=== PATIENT | male | born 1935 | race Caucasian/White ===

== ENCOUNTER 2017-11-12 08:32 | Day surgery (SDC) | payer OTHER ==
--- NOTE | 2017-11-11 10:12 | RAD REPORT ---
EXAM DESCRIPTION: RAD - Chest Pa And Lat (2 Views) - 11/11/2017 8:59 am CLINICAL HISTORY: preop Chest pain. COMPARISON: CHEST SINGLE VIEW dated 06/06/2007 FINDINGS: The lungs are clear. The heart is normal in size. No displaced fractures. IMPRESSION: No acute or concerning finding suspected.
[2017-11-11 10:35] LABS: Absolute Lymphocytes (CBC) 1.5 K/uL (0.7-4.9); Absolute Monocytes 0.5 K/uL (0.1-1.3); Absolute Neutrophil 4.2 K/uL (1.8-8.0); Basophils % 0.4 % (0-1.3); Eosinophils % 2.7 % (0-4.4); Hematocrit 38.5 % (39.6-49.0); Lymphocytes % 23.5 % (15.3-44.8); MCH 31.3 pg (27.0-35.0); MCV 94.4 fL (80-100); MPV 8.6 fL (7.6-11.3); Monocytes % 7.4 % (3.3-12.3); RBC Red Blood Cell Count 4.08 M/uL (4.33-5.43)
[2017-11-11 10:51] LABS: BUN Blood Urea Nitrogen 12 mg/dL (7-18); Bicarbonate 31 mmol/L (21-32); Glucose Level 87 mg/dL (74-106); Potassium 4.1 mmol/L (3.5-5.1); Sodium Level 142 mmol/L (136-145)
--- NOTE | 2017-11-11 15:41 | EKG ---
Test Date: 2017-11-11 Test Time: 08:29:46 Plate Maker Zinc: PREM MEASUREMENT RESULTS: Intervals: Rate: 63 IA: 218 QRSD: 96 QT: 414 QTc: 423 [place]: P: 27 IA: 218 QRS: -35 T: 59 INTERPRETIVE STATEMENTS: Sinus rhythm with 1st degree AV block Left axis deviation Abnormal ECG Compared to ECG 06/08/2007 05:56:41 First degree AV block now present Left-axis deviation now present Electronically Signed On 11-11-17 15:40:26 CDT by Russell Mruillo
[2017-11-12] MEDS ORDERED: Ringers Lactate 1,000 ML IV ONE (08:59)
[2017-11-12] MEDS ORDERED: CIPROFLOXACIN 400mg IV 400 MG/200 ML BAG IV ONE (08:59)
[2017-11-12] MEDS ORDERED: LIDOCAINE 1% 20 ML MDV ONE (09:34)
--- NOTE | 2017-11-12 19:04 | OP ---
Date of Procedure: 11/12/2017 Surgeon: Brendan Flores MD Preoperative Diagnosis: Inflamed sebaceous cyst, right posterior shoulder. Postoperative Diagnosis: Inflamed sebaceous cyst, right posterior shoulder. Procedure: Wide excision, inflamed sebaceous cyst right posterior shoulder 8 x 4 cm with layered addie sure. Estimated Blood Loss: Minimal. Specimens: Sebaceous cyst and DISK RECOATER. Findings: As above. Anesthesia: Local. Complications: None. Disposition: The patient tolerated the procedure in stable condition and taken to Recovery in good g eneral condition. Operative Note: The patient was brought to the OR and placed in the supine position and then turned in the left lateral position, prepped and draped in usual sterile fashion. Lidocaine 1% was infiltra aruna locally. A 15-blade was used to make an 8 x 4 cm incision to include this inflamed sebaceous cys t, which was excised in its entirety all the way down to the subcutaneous space involving the muscle. After being excised, it was sent to pathology and cultures were done on the inflamed contents of th e cyst. Wound irrigated. Bleeding controlled with cautery. Flap was created and then 2-0 chromic u sed for subcutaneous tissue and after [place] quarter-inch drain was placed, secured with 3-0 nylon a nd then donovan used to loosely approximate the skin. Sterile dressing was applied. The patient was awakened and taken to Recovery in good general condition. Discharge Note: The patient will go to Day Surgery and home when stable. Disposition: Home. Condition: Stable. Discharge Instructions: Resume home meds and diet. Activity as tolerated. No heavy lifting. Remov e outer dressing in a.m. Shower. Keep wound clean and dry. Follow up in my office in a week. Call for appointment. Tylenol No. 3 one tablet p.o. q.4 p.r.n. pain, Cipro 500 mg p.o. q.12. /MODL Voice ID: [id number] Report ID: [id number]
== END 2017-11-12 11:50 | disposition home or self-care (01) ==
LOC: OR 08:32
PROVIDERS: ATTEND Surgery
PROC: 0JQD0ZZ Repair Right Upper Arm Subcutaneous Tissue and Fascia, Open Approach (ICD-10-PCS; 2017-11-12)
PROC: 0JBD0ZX Excision of Right Upper Arm Subcutaneous Tissue and Fascia, Open Approach, Diagnostic (ICD-10-PCS; principal; 2017-11-12 10:00)
DX: L72.3 Sebaceous cyst (principal); L92.8 Other granulomatous disorders of the skin and subcutaneous tissue; Z88.0 Allergy status to penicillin
CPT/HCPCS: 11406; 12034; 36415; 71046; 80048; 85025; 87070; 87075; 87205 ×2; 88304; 93005; J0744; 88305

== ENCOUNTER 2017-12-30 09:23 | Emergency (ER) | payer OTHER ==
[2017-12-30] MEDS ORDERED: HYDROCODONE/APAP 7.5/325 MG TAB ONE (10:10)
--- NOTE | 2017-12-30 11:00 | EDPHYS ---
Physician Documentation [facility] Name: Liss Cordon Age: 82 yrs Sex: Male : 1935 Arrival Date: 12/30/2017 Time: 09:26 Bed 5 Private MD: Morris Santana R ED Physician Manny Royal HPI: 12/30 10:00 This 82 yrs old Male presents to ER via Wheelchair with complaints of Fall redd Injury. 10:00 Details of fall: The patient fell from an upright position, while walking. Onset: The redd symptoms/episode began/occurred just prior to arrival, this morning. Associated injuries: The patient sustained injury to the head, abrasion, contusion, hematoma, pain. Severity of symptoms: At their worst the symptoms were moderate, in the emergency department the symptoms are unchanged. Historical: - Allergies: 09:50 NKA; iw - PMHx: 09:50 Alzheimers; Hyperlipidemia; iw - PSHx: 09:50 Cholecystectomy; cyst removed from shoulder; iw - Immunization history: Last tetanus immunization: unknown. - Social history:: Smoking status: Patient/guardian denies using tobacco. - Ebola Screening: : Patient denies exposure to infectious person Patient denies travel to an Ebola-affected area in the 21 days before illness onset. ROS: 10:05 Constitutional: Negative for fever, chills, and weight loss, Eyes: Negative for injury, redd pain, redness, and discharge, ENT: Negative for injury, pain, and discharge, Neck: Negative for injury, pain, and swelling, Cardiovascular: Negative for chest pain, palpitations, and edema, Respiratory: Negative for shortness of breath, cough, wheezing, and pleuritic chest pain, Abdomen/GI: Negative for abdominal pain, nausea, vomiting, diarrhea, and constipation, Back: Negative for injury and pain, : Negative for injury, bleeding, discharge, and swelling, Neuro: Negative for headache, weakness, numbness, tingling, and seizure, Psych: Negative for depression, anxiety, suicide ideation, homicidal ideation, and hallucinations, Allergy/Immunology: Negative for hives, rash, and allergies, Endocrine: Negative for neck swelling, polydipsia, polyuria, polyphagia, and marked weight changes, Hematologic/Lymphatic: Negative for swollen nodes, abnormal bleeding, and unusual bruising. 10:05 MS/extremity: Positive for decreased range of motion, pain, swelling, tenderness, of the right knee. 10:05 Skin: Positive for abrasion(s), swelling, of the nose and mouth. Exam: 10:05 Constitutional: This is a well developed, well nourished patient who is awake, alert, redd and in no acute distress. Eyes: Pupils equal round and reactive to light, extra-ocular motions intact. Lids and lashes normal. Conjunctiva and sclera are non-icteric and not injected. Cornea within normal limits. Periorbital areas with no swelling, redness, or edema. ENT: Nares patent. No nasal discharge, no septal abnormalities noted. Tympanic membranes are normal and external auditory canals are clear. Oropharynx with no redness, swelling, or masses, exudates, or evidence of obstruction, uvula midline. Mucous membranes moist. Neck: Trachea midline, no thyromegaly or masses palpated, and no cervical lymphadenopathy. Supple, full range of motion without nuchal rigidity, or vertebral point tenderness. No Meningismus. Chest/axilla: Normal chest wall appearance and motion. Nontender with no deformity. No lesions are appreciated. Cardiovascular: Regular rate and rhythm with a normal S1 and S2. No gallops, murmurs, or rubs. Normal PMI, no JVD. No pulse deficits. Respiratory: Lungs have equal breath sounds bilaterally, clear to auscultation and percussion. No rales, rhonchi or wheezes noted. No increased work of breathing, no retractions or nasal flaring. Abdomen/GI: Soft, non-tender, with normal bowel sounds. No distension or tympany. No guarding or rebound. No evidence of tenderness throughout. Back: No spinal tenderness. No costovertebral tenderness. Full range of motion. Male : Normal genitalia with no discharge or lesions. Skin: Warm, dry with normal turgor. Normal color with no rashes, no lesions, and no evidence of cellulitis. Neuro: Awake and alert, GCS 15, oriented to person, place, time, and situation. Cranial nerves II-XII grossly intact. Motor strength 5/5 in all extremities. Sensory grossly intact. Cerebellar exam normal. Normal gait. Psych: Awake, alert, with orientation to person, place and time. Behavior, mood, and affect are within normal limits. 10:05 Head/face: Noted is abrasion(s), that are mild, of the nose and mouth, contusion, swelling, tenderness. 10:05 Musculoskeletal/extremity: Extremities: grossly normal except: noted in the right knee: decreased ROM, pain, swelling, tenderness. Vital Signs: 09:43 BP 144 / 74; Pulse 63; Resp 16; Temp 97.6(TE); Pulse Ox 97% on R/A; Weight 83.91 kg; iw Height 5 ft. 9 in. (175.26 cm); Pain 0/10; 11:00 BP 142 / 72; Pulse 65; Resp 16; Pulse Ox 98% on R/A; Pain 4/10; ss 09:43 Body Mass Index 27.32 (83.91 kg, 175.26 cm) iw Shar Coma Score: 09:43 Eye Response: spontaneous(4). Verbal Response: oriented(5). Motor Response: obeys iw commands(6). Total: 15. 11:00 Eye Response: spontaneous(4). Verbal Response: oriented(5). Motor Response: obeys ss commands(6). Total: 15. Trauma Score (Adult): 09:43 Eye Response: spontaneous(1); Verbal Response: oriented(1); Motor Response: obeys iw commands(2); Systolic BP: > 89 mm Hg(4); Respiratory Rate: 10 to 29 per min(4); Lingle Score: 15; Trauma Score: 12 MDM: 09:41 Patient medically screened. [facility] 10:09 Data reviewed: radiologic studies, plain films. [facility] 12/30 10:00 Order name: Knee Right 3 View XRAY [facility] 12/30 10:00 Order name: Ice pack; Complete Time: 10:01 [facility] 12/30 10:00 Order name: Wound Care; Complete Time: 10:41 [facility] 12/30 10:58 Order name: Knee Immobilizer; Complete Time: 11:14 [facility] Administered Medications: 10:10 Drug: Neosporin Ointment 1 application Route: Topical; Site: affected area; 11:14 Not Given (Patient Refused): Marquette (7.5 mg-325 mg) 1 tabs PO once iw Disposition: 12/30/17 10:59 Discharged to Home. Impression: Fall due to bumping against object, Fracture of patella, Longitudinal fracture of patella. - Condition is Stable. - Discharge Instructions: Fall Prevention in the Home, Patellar Fracture, Adult, Fall Prevention in the Home, [id number]. - Prescriptions for Tylenol- Codeine #3 300-30 mg Oral Tablet - take 2 tablet by ORAL route every 6 hours As needed; 30 tablet. - Medication Reconciliation Form, Thank You Letter, Antibiotic Education, Prescription Opioid Use form. - Follow up: Morris Santana MD; When: 2 - 3 days; Reason: Recheck today's complaints, Continuance of care, Re-evaluation by your physician. Follow up: Murphy Valerio MD; When: 2 - 3 days; Reason: Recheck today's complaints, Re-evaluation by your physician. - Problem is new. - Symptoms have improved. Signatures: Dispatcher [employer] EDMS Ramon Reeves RN RN Manny Snowden MD MD cha Williams, Irene, RN RN iw Smirch, Shelby, RN RN ss Corrections: (The following items were deleted from the chart) 11:28 10:59 12/30/2017 10:59 Discharged to Home. Impression: Fall due to bumping against ss object; Fracture of patella; Longitudinal fracture of patella. Condition is Stable. Forms are Medication Reconciliation Form, Thank You Letter, Antibiotic Education, Prescription Opioid Use. Follow up: Morris Santana; When: 2 - 3 days; Reason: Recheck today's complaints, Continuance of care, Re-evaluation by your physician. Follow up: Murphy Valerio; When: 2 - 3 days; Reason: Recheck today's complaints, Re-evaluation by your physician. Problem is new. Symptoms have improved. redd
--- NOTE | 2017-12-30 11:00 | ER ---
Nurse's Notes [facility] Name: Liss Cordon Age: 82 yrs Sex: Male : 1935 Arrival Date: 12/30/2017 Time: 09:26 Bed 5 Private MD: Morris Santana R Diagnosis: Fall due to bumping against object;Fracture of patella;Longitudinal fracture of patella Presentation: 12/30 09:40 Presenting complaint: Patient states: tripped and fell over a pile of tree limbs this iw morning, fell onto concrete, hit face and right knee, denies LOC, not on blood thinners, pain and swelling to right knee, cannot bear weight on knee. Care prior to arrival: None. Mechanism of Injury: Fall from standing position. Trauma event details: Injury occurred in the [facility], Injury occurred: at home. Injury occurred: December 30, 2017. 09:40 Acuity: HARDY 3 iw 09:40 Method Of Arrival: Wheelchair iw 09:48 Transition of care: patient was not received from another setting of care. Onset of ss symptoms was December 30, 2017. Risk Assessment: Do you want to hurt yourself or someone else? Patient reports no desire to harm self or others. Initial Sepsis Screen: Does the patient meet any 2 criteria? No. Patient's initial sepsis screen is negative. Does the patient have a suspected source of infection? No. Patient's initial sepsis screen is negative. Trauma Activation: Not Applicable Physician: ED Physician; Name: ; Notified At: ; Arrived At: Physician: General Surgeon; Name: ; Notified At: ; Arrived At: Physician: Radiology; Name: ; Notified At: ; Arrived At: Physician: Respiratory; Name: ; Notified At: ; Arrived At: Physician: Lab; Name: ; Notified At: ; Arrived At: Historical: - Allergies: 09:50 NKA; iw - PMHx: 09:50 Alzheimers; Hyperlipidemia; iw - PSHx: 09:50 Cholecystectomy; cyst removed from shoulder; iw - Immunization history: Last tetanus immunization: unknown. - Social history:: Smoking status: Patient/guardian denies using tobacco. - Ebola Screening: : Patient denies exposure to infectious person Patient denies travel to an Ebola-affected area in the 21 days before illness onset. Screenin:41 Abuse screen: Denies threats or abuse. Denies injuries from another. Tuberculosis ss screening: Never had TB. 09:45 Nutritional screening: No deficits noted. Fall Risk Fall in past 12 months (25 points). ss Secondary diagnosis (15 points) Alzheimer's, No IV (0 pts). Ambulatory Aid- None/Bed Rest/Nurse Assist (0 pts). Gait- Normal/Bed Rest/Wheelchair (0 pts) Mental Status- Oriented to own ability (0 pts). Primary Survey: :41 A: Airway: patent, No supplemental oxygen in use on arrival. Oral cavity: clear, ss Trachea midline. Breathing/Chest: Respiratory pattern: regular, Respiratory effort: spontaneous, unlabored, Breath sounds: clear, Chest inspection: symmetrical rise and fall of the chest. Circulation: Pulses: palpable right radial artery, right posterior tibial artery, left radial artery and left posterior tibial artery. Skin color: pink, Skin temperature: warm, dry. Disability Alert. 10:15 Reassessment Airway Airway Breathing/Chest Respiratory pattern Regular Respiratory ss effort Spontaneous Unlabored Breath sounds Clear Chest inspection Symmetrical Disability Alert. Secondary Survey: :41 HEENT: Face Other redness/ mild abrasion noted to upper lip and top of nose. ss Gastrointestinal: No deficits noted. : No deficits noted. Musculoskeletal: Swelling present in right knee. Assessment: 09:41 General: Appears in no apparent distress. comfortable, Behavior is calm, cooperative. ss Pain: Complains of pain in philtrum and right knee Pain currently is 0 out of 10 on a pain scale. Quality of pain is described as tender, Aggravated by weight bearing. Neuro: Level of Consciousness is awake, alert, obeys commands, Oriented to person, place, situation, Speech is normal. EENT: Nares are clear Oral mucosa is moist. Throat is clear. Cardiovascular: Denies chest pain, fatigue, lightheadedness, shortness of breath, Heart tones S1 S2 present Capillary refill < 3 seconds is brisk in bilateral fingers Patient's skin is warm and dry. Pulses are palpable in right radial artery, right posterior tibial artery, left radial artery and left posterior tibial artery. Respiratory: Airway Trachea midline Respiratory effort is even, unlabored, Respiratory pattern is regular, symmetrical, Breath sounds are clear bilaterally. Denies cough, shortness of breath labored breathing, pain with respiration, pain with cough, pain with movement. GI: Patient currently denies abdominal pain, diarrhea, nausea, vomiting. : No signs and/or symptoms were reported regarding the genitourinary system. Derm: Skin is thin, Skin is dry, Skin is pink, warm \\T\\ dry. Musculoskeletal: Circulation, motion, and sensation intact. Range of motion: intact in all extremities, Swelling present in right knee. Injury Description: Abrasion sustained to philtrum, R knee. 09:45 Reassessment: Pt reports he was able to ambulate right after he fell, but made his R ss knee pain worse. Daughter remains at bedside. Pillow and warm blanket given for comfort. Call light remains within reach. 10:09 Reassessment: pt currently refused Burt as ordered, pt reports " lets hold off on the sg pain medication right now." Xray at bedside, pt family remains in hallway while xrays are done. will continue to monitor. Vital Signs: 09:43 BP 144 / 74; Pulse 63; Resp 16; Temp 97.6(TE); Pulse Ox 97% on R/A; Weight 83.91 kg; iw Height 5 ft. 9 in. (175.26 cm); Pain 0/10; 11:00 BP 142 / 72; Pulse 65; Resp 16; Pulse Ox 98% on R/A; Pain 4/10; ss 09:43 Body Mass Index 27.32 (83.91 kg, 175.26 cm) iw [place] Coma Score: 09:43 Eye Response: spontaneous(4). Verbal Response: oriented(5). Motor Response: obeys commands(6). Total: 15. 11:00 Eye Response: spontaneous(4). Verbal Response: oriented(5). Motor Response: obeys commands(6). Total: 15. Trauma Score (Adult): 09:43 Eye Response: spontaneous(1); Verbal Response: oriented(1); Motor Response: obeys commands(2); Systolic BP: > 89 mm Hg(4); Respiratory Rate: 10 to 29 per min(4); Shar Score: 15; Trauma Score: 12 ED Course: 09:26 Patient arrived in ED. mr 09:26 Morris Santana MD is Private Physician. mr 09:41 Fide Allred, MIREYA is Primary Nurse. ss 09:41 Manny Royal MD is Attending Physician. redd 09:43 Triage completed. iw 09:45 Patient has correct armband on for positive identification. Bed in low position. Call ss light in reach. Side rails up X 1. Door closed. Noise minimized. Lights dimmed. Warm blanket given. Pillow given. 09:45 Patient maintains SpO2 saturation greater than 95% on room air. ss 09:45 Thermoregulation: warm blanket given to patient. ss 09:50 Arm band placed on. iw 10:10 Wound care: to abrasion, located on right knee was cleaned with soap and water, dressed sg with Neosporin, band aid, ice pack applied. Patient tolerated well. 10:17 X-ray completed. Portable x-ray completed in exam room. Patient tolerated procedure jb2 well. 10:20 Knee Right 3 View XRAY In Process Unspecified. EDMS 10:58 Morris Santana MD is Referral Physician. [facility] 10:58 Murphy Valerio MD is Referral Physician. [facility] 11:00 No provider procedures requiring assistance completed. ss 11:14 Knee immobilizer applied on right knee. walker training/education performed, pt iw demonstrated understanding. 11:25 Patient did not have IV access during this emergency room visit. ss Administered Medications: 10:10 Drug: Neosporin Ointment 1 application Route: Topical; Site: affected area; sg 11:14 Not Given (Patient Refused): Burt (7.5 mg-325 mg) 1 tabs PO once iw Intake: 10:15 PO: 0ml; Total: 0ml. ss Outcome: 10:59 Discharge ordered by . [facility] 11:25 Discharged to home via wheelchair, with family. 11:25 Condition: good 11:25 Discharge instructions given to patient, family, Instructed on discharge instructions, follow up and referral plans. medication usage, Demonstrated understanding of instructions, follow-up care, medications, crutch walking, Prescriptions given X 1. 11:27 Patient's length of stay was not longer than 2 hours. ss 11:28 Patient left the ED. ss Signatures: Dispatcher [employer] EDMS Ramon Reeves, RN RN Manny Snowden MD MD cha Rivera, Maria Dipak Fowler jb2 Dedra Richardson RN RN Fide Allred RN RN ss Corrections: (The following items were deleted from the chart) 11:27 11:00 BP 142 / 72; Pulse 16bpm; Resp 65bpm; Pulse Ox 98% RA; Pain 08/26; ss ss
--- NOTE | 2017-12-30 11:04 | RAD REPORT ---
EXAM DESCRIPTION: RAD - Knee Right 3 View - 12/30/2017 10:24 am CLINICAL HISTORY: Trip and fall, blunt force trauma to the anterior knee COMPARISON: None. FINDINGS: No fracture of the distal femur or proximal tibia seen. Proximal fibula also intact. There is an oblique fracture traversing the patella from the medial superior margin to the lateral inferio r margin. No distraction. There is a large joint effusion or hemarthrosis. No fat fluid level at this time. No joint space narrowing. No foreign body or other soft tissue abnormality. IMPRESSION: Oblique fracture through the patella. No distraction of the fracture plane. Large joint effusion/ hemarthrosis. No acute femur or tibia finding.
== END 2017-12-30 11:28 | disposition home or self-care (01) ==
LOC: ER 09:23
DX: S82.021A Displaced longitudinal fracture of right patella, initial encounter for closed fracture (principal); W18.00XA Striking against unspecified object with subsequent fall, initial encounter; Y93.01 Activity, walking, marching and hiking; Y92.9 Unspecified place or not applicable; G30.9 Alzheimer's disease, unspecified; F02.80 Dementia in other diseases classified elsewhere, unspecified severity, without behavioral disturbance, psychotic disturbance, mood disturbance, and anxiety
CPT/HCPCS: 99284

== ENCOUNTER 2019-07-18 08:56 | Emergency (ER) | payer OTHER ==
--- OUTSIDE RECORDS SUMMARY | 2019-07-18 08:58 | XMS REPORT ---
:1935 Author Organization [employer] Care Team Providers Name Role Phone Valerio Murphy Provider Role Unavailable Allergies, Adverse Reactions, Alerts Substance Reaction Event Type penicillin Info Not Available Drug Allergy Problems Problem Type Condition Code Onset Dates Condition Status Problem Injury, unspecified, initial T14.90XA Active encounter Problem Closed nondisplaced transverse S82.035A Active fracture of left patella, initial encounter Problem Pain in right knee M25.561 Active Assessment Closed nondisplaced transverse S82.034A Active fracture of right patella, initial encounter Assessment Pain in right knee M25.561 Active Problem Closed nondisplaced transverse S82.034A Active fracture of right patella, initial encounter Medications Medication Code Code Instructions Start End Status Dosage System Date Date Ciprofloxacin HCl [facility] 48973273124 500 MG Oral Active TAKE 1 TABLET BY MOUTH EVERY [address] [facility] 53224726169 0.1 % External Active APPLY Acetonide TWICE A DAY Sertraline HCl [facility] 88801395296 25 MG Oral Active TAKE 1 TABLET BY MOUTH EVERY DAY Acetaminophen-Cod [facility] 34541384603 300-30 MG Oral Active (Schedule eine #3 III Drug) TAKE 1 TABLET EVERY [address] [facility] 75572460724 40 MG Oral Active TAKE 1 Sodium TABLET BY MOUTH AT BEDTIME Donepezil HCl [facility] 17906306823 10 MG Oral Active TAKE 1 TABLET BY MOUTH EVERY DAY Results No Known Results Summary Purpose [employer] Submission
--- OUTSIDE RECORDS SUMMARY | 2019-07-18 08:58 | XMS REPORT ---
[...] Pain in right knee M25.561 Active Assessment Pain in right knee M25.561 Active Assessment Nondisplaced transverse fracture S82.034D Active of right patella, subsequent encounter for closed fracture with routine healing Problem Closed nondisplaced transverse S82.034A Active fracture of right patella, initial encounter Medications Medication Code Code Instructions Start End Status Dosage System Date Date Acetaminophen-Cod [facility] 07067494021 300-30 MG Oral Active (Schedule eine #3 III Drug) TAKE 1 TABLET EVERY 8 HOURS Ciprofloxacin HCl [facility] 80120269926 500 MG Oral Active TAKE 1 TABLET BY MOUTH EVERY 12 HOURS Donepezil HCl [facility] 83139983523 10 MG Oral Active TAKE 1 TABLET BY MOUTH EVERY DAY Pravastatin [facility] 11168572907 40 MG Oral Active TAKE 1 Sodium TABLET BY MOUTH AT BEDTIME Sertraline HCl [facility] 21800665441 25 MG Oral Active TAKE 1 TABLET BY MOUTH EVERY DAY Triamcinolone [facility] 53921517023 0.1 % External Active APPLY Acetonide TWICE A DAY Results No Known Results Summary Purpose [employer] Submission
[2019-07-18] MEDS ORDERED: TETANUS & DIPHTHERIA TOX,ADULT 0.5 ML VIAL ONE (11:05)
--- NOTE | 2019-07-18 11:05 | RAD REPORT ---
EXAM DESCRIPTION: CT - [id number] - 07/18/2019 10:35 am CLINICAL HISTORY: Trauma, head and neck injury. PAIN COMPARISON: No comparisons TECHNIQUE: Axial 5 mm thick images of the head were obtained. Axial 2 mm thick images of the cervical spine were obtained with sagittal and coronal reconstruction images generated and reviewed. All CT scans are performed using dose optimization technique as appropriate and may include automated exposure control or mA/KV adjustment according to patient size. FINDINGS: CT HEAD WITHOUT CONTRAST: No acute hemorrhage, hydrocephalus or extra-axial collection is identified.Moderate generalized brain atrophy.No areas of brain edema or midline shift. The paranasal sinuses and mastoids are clear.The calvarium is intact. CT CERVICAL SPINE WITHOUT CONTRAST: No acute fracture is seen. 2 mm degenerative anterolisthesis of C3 on 4 is present.Moderate lower cer vical degenerative change with disc thinning and posterior osteophyte present.No prevertebral soft ti ssues swelling is identified. Carotid atherosclerosis. IMPRESSION: No acute intracranial or cervical spine findings. Moderate mid and lower cervical spondylosis.
--- NOTE | 2019-07-18 11:43 | ER ---
Nurse's Notes [facility] Name: Liss Cordon Age: 84 yrs Sex: Male : 1935 Arrival Date: 07/18/2019 Time: 08:57 Bed 30 Private MD: Morris Santana R Diagnosis: Laceration without foreign body of scalp;Fall on same level from slipping, tripping and stumbling;Pain in left shoulder-contusion Presentation: 07/17 09:12 Chief complaint: Patient's son or daughter states: pt was leaving his room, does not iw know exactly how he fell but he hit his head on a heater and has pain to left shoulder , denies LOC, was able to get himself up , not on blood thinners , abrasion to left side of head and left elbow. 09:12 Acuity: HARDY 4 iw 09:12 Method Of Arrival: Wheelchair iw 09:14 Care prior to arrival: None. Mechanism of Injury: Fall from standing position. Trauma iw event details: Injury occurred in the [facility]. 09:15 Onset of symptoms was July 18, 2019. iw 09:16 Coronavirus screen: The patient has NOT traveled to [place] in the past 14 days. Proceed iw with normal triage procedures. Ebola Screen: Patient negative for fever greater than or equal to 101.5 degrees Fahrenheit, and additional compatible Ebola Virus Disease symptoms Patient denies exposure to infectious person. Patient denies travel to an Ebola-affected area in the 21 days before illness onset. No symptoms or risks identified at this time. Initial Sepsis Screen: Does the patient meet any 2 criteria? No. Patient's initial sepsis screen is negative. Does the patient have a suspected source of infection? No. Patient's initial sepsis screen is negative. Risk Assessment: Do you want to hurt yourself or someone else? Patient reports no desire to harm self or others. Trauma Activation: Not Applicable Physician: ED Physician; Name: ; Notified At: ; Arrived At: Physician: General Surgeon; Name: ; Notified At: ; Arrived At: Physician: Radiology; Name: ; Notified At: ; Arrived At: Physician: Respiratory; Name: ; Notified At: ; Arrived At: Physician: Lab; Name: ; Notified At: ; Arrived At: Historical: - Allergies: 09:14 PENICILLINS; iw - Home Meds: 09:16 donepezil 10 mg oral tab 1 tab once daily [Active]; sertraline 25 mg oral tab 1 tab iw once daily [Active]; Vitamin B-12 Oral daily [Active]; Centrum Silver oral oral daily [Active]; memantine 5 mg oral tab [Active]; - PMHx: 09:14 Alzheimers; Hyperlipidemia; iw - PSHx: 09:14 Cholecystectomy; cyst removed from shoulder; iw - Immunization history: Last tetanus immunization:. Screenin:20 Fall Risk Fall in past 12 months (25 points). iw 10:10 Abuse screen: Denies threats or abuse. Denies injuries from another. Nutritional aj1 screening: No deficits noted. Tuberculosis screening: No symptoms or risk factors identified. Assessment: 10:10 General: Appears in no apparent distress. comfortable, Behavior is calm, cooperative, aj1 appropriate for age. Pain: Complains of pain in neck and shoulders. Neuro: Level of Consciousness is awake, alert, obeys commands, Oriented to person, place, time, situation, Gait is steady, Speech is normal, Facial symmetry appears normal, Denies LOC, vomiting. Cardiovascular: Patient's skin is warm and dry. Respiratory: Airway is patent Respiratory effort is even, unlabored, Respiratory pattern is regular, symmetrical. GI: No signs and/or symptoms were reported involving the gastrointestinal system. : No signs and/or symptoms were reported regarding the genitourinary system. EENT: No signs and/or symptoms were reported regarding the EENT system. Derm: Skin is pink, warm \T\ dry. normal. Musculoskeletal: Range of motion: intact in all extremities. Injury Description: Laceration sustained to Left side of scalp, skin tear to left arm. 11:04 Reassessment: Patient appears in no apparent distress at this time. No changes from aj1 previously documented assessment. Patient and/or family updated on plan of care and expected duration. Pain level reassessed. Patient is alert, oriented x 3, equal unlabored respirations, skin warm/dry/pink. Vital Signs: 09:14 BP 141 / 54; Pulse 58; Resp 16; Temp 98.0; Pulse Ox 98% on R/A; iw 11:04 BP 132 / 59; Pulse 63; Resp 18; Pulse Ox 98% on R/A; aj1 Shar Coma Score: 09:14 Eye Response: spontaneous(4). Verbal Response: oriented(5). Motor Response: obeys iw commands(6). Total: 15. Trauma Score (Adult): 09:14 Eye Response: spontaneous(1); Verbal Response: oriented(1); Motor Response: obeys iw commands(2); Systolic BP: > 89 mm Hg(4); Respiratory Rate: 10 to 29 per min(4); [place] Score: 15; Trauma Score: 12 ED Course: 08:57 Patient arrived in ED. rg4 08:57 Morris Santana MD is Private Physician. rg4 09:14 Triage completed. iw 09:16 Arm band placed on. iw 09:35 Mike Persaud NP is PHCP. pm1 09:35 Manyn Royal MD is Attending Physician. pm1 10:09 Dedra Richardson RN is Primary Nurse. iw 10:10 Patient has correct armband on for positive identification. Bed in low position. Call aj1 light in reach. Side rails up X 1. 10:10 No provider procedures requiring assistance completed. aj1 10:33 Shoulder Left (2 View) XRAY In Process Unspecified. EDMS 10:35 CT Head C Spine In Process Unspecified. EDMS 10:35 CT completed. Patient tolerated procedure well. Patient moved back from CT. mw3 11:54 Patient did not have IV access during this emergency room visit. aj1 Administered Medications: 11:03 Drug: Tetanus-Diphtheria Toxoid Adult 0.5 ml {Serging Machine Operator: [employer]Angel. Exp: aj1 04/16/2021. Lot #: [id number]. } Route: IM; Site: right deltoid; Outcome: 11:43 Discharge ordered by . pm1 11:54 Discharged to home ambulatory. aj1 11:54 Condition: good 11:54 Discharge instructions given to patient, family, Instructed on discharge instructions, follow up and referral plans. medication usage, Demonstrated understanding of instructions, follow-up care, medications, Prescriptions given X 1. 11:55 Patient left the ED. aj1 Signatures: Dispatcher [employer] EDMS Fabi Pereira RN RN aj1 Dedra Richardson RN RN iw Mike Persaud NP LEGAL ENTITY CONTROLLER pm1 Mica Goel rg4 Dinora Faith mw3
--- NOTE | 2019-07-18 11:43 | EDPHYS ---
Physician Documentation [facility] Name: Liss Cordon Age: 84 yrs Sex: Male : 1935 Arrival Date: 07/18/2019 Time: 08:57 Bed 30 Private MD: Morris Santana R ED Physician Manny Royal HPI: 07/17 10:01 This 84 yrs old Male presents to ER via Wheelchair with complaints of Fall pm1 Injury. 10:01 Details of fall: The patient fell from an upright position, while walking, Patient was pm1 turning around in his bedroom and lost his balance. Landed on his left shoulder on the floor and hit his head. Presenting with laceration to left back of scalp. Onset: The symptoms/episode began/occurred this morning. Associated injuries: The patient sustained injury to the head, laceration, of the left side of the back of head, left shoulder, Pain. It is unknown whether or not the patient has recently seen a physician. No chest pain, shortness of breath, dizziness, headache, LOC, neck pain. Historical: - Allergies: 09:14 PENICILLINS; iw - Home Meds: 09:16 donepezil 10 mg oral tab 1 tab once daily [Active]; sertraline 25 mg oral tab 1 tab iw once daily [Active]; Vitamin B-12 Oral daily [Active]; Centrum Silver oral oral daily [Active]; memantine 5 mg oral tab [Active]; - PMHx: 09:14 Alzheimers; Hyperlipidemia; iw - PSHx: 09:14 Cholecystectomy; cyst removed from shoulder; iw - Immunization history: Last tetanus immunization:. ROS: 10:01 Constitutional: Negative for fever, chills, and weight loss, Neck: Negative for injury, pm1 pain, and swelling, Cardiovascular: Negative for chest pain, palpitations, and edema, Respiratory: Negative for shortness of breath, cough, wheezing, and pleuritic chest pain, Abdomen/GI: Negative for abdominal pain, nausea, vomiting, diarrhea, and constipation, Back: Negative for injury and pain. 10:01 MS/extremity: Positive for pain, of the left shoulder, Negative for decreased range of motion, deformity, of left shoulder. 10:01 Skin: Positive for abrasion to left forearm, laceration to left scalp. 10:01 Neuro: Negative for altered mental status, dizziness, headache, loss of consciousness, numbness, tingling, weakness. Exam: 10:01 Constitutional: This is a well developed, well nourished patient who is awake, alert, pm1 and in no acute distress. 10:01 Eyes: Pupils equal round and reactive to light, extra-ocular motions intact. Lids and lashes normal. Conjunctiva and sclera are non-icteric and not injected. Cornea within normal limits. Periorbital areas with no swelling, redness, or edema. ENT: Nares patent. No nasal discharge, no septal abnormalities noted. Tympanic membranes are normal and external auditory canals are clear. Oropharynx with no redness, swelling, or masses, exudates, or evidence of obstruction, uvula midline. Mucous membranes moist. Neck: Trachea midline, no thyromegaly or masses palpated, and no cervical lymphadenopathy. Supple, full range of motion without nuchal rigidity, or vertebral point tenderness. No Meningismus. Chest/axilla: Normal chest wall appearance and motion. Nontender with no deformity. No lesions are appreciated. Cardiovascular: Regular rate and rhythm with a normal S1 and S2. No gallops, murmurs, or rubs. Normal PMI, no JVD. No pulse deficits. Respiratory: Lungs have equal breath sounds bilaterally, clear to auscultation and percussion. No rales, rhonchi or wheezes noted. No increased work of breathing, no retractions or nasal flaring. Abdomen/GI: Soft, non-tender, with normal bowel sounds. No distension or tympany. No guarding or rebound. No evidence of tenderness throughout. Back: No spinal tenderness. No costovertebral tenderness. Full range of motion. 10:01 Head/face: Noted is no obvious of injury or deformity except a laceration(s), that is linear, 2 cm(s), of the left side of the back of head. 10:01 Musculoskeletal/extremity: Extremities: grossly normal except: noted in the left shoulder: There is no evidence of decreased ROM, FROM passive and active intact. 10:01 Skin: Appearance: normal except for affected area, injury, abrasion(s), small abrasion noted, of the palmar aspect of left forearm, laceration(s), the wound is approximately 2 cm(s), of the left side of the back of head. 10:01 Neuro: Orientation: is normal, Motor: is normal, moves all fours, Sensation: is normal, no obvious gross deficits. Vital Signs: 09:14 BP 141 / 54; Pulse 58; Resp 16; Temp 98.0; Pulse Ox 98% on R/A; iw 11:04 BP 132 / 59; Pulse 63; Resp 18; Pulse Ox 98% on R/A; aj1 Shar Coma Score: 09:14 Eye Response: spontaneous(4). Verbal Response: oriented(5). Motor Response: obeys iw commands(6). Total: 15. Trauma Score (Adult): 09:14 Eye Response: spontaneous(1); Verbal Response: oriented(1); Motor Response: obeys iw commands(2); Systolic BP: > 89 mm Hg(4); Respiratory Rate: 10 to 29 per min(4); [place] Score: 15; Trauma Score: 12 Laceration: 11:41 Wound Repair of 2cm ( 0.8in ) subcutaneous laceration to left parietal area. Linear pm1 shaped.. Distal neuro/vascular/tendon intact. Wound prep: Extensive cleansing with hibiclenz by me, Wound irrigation with saline by me, Wound explored extensively, Copious irrigation. Skin closed with 4 1-0 Chuy using staple gun. Patient tolerated well. MDM: 09:40 Patient medically screened. pm1 11:41 Data reviewed: vital signs. Data interpreted: Pulse oximetry: on room air is 98 %. pm1 Interpretation: normal. Counseling: I had a detailed discussion with the patient and/or guardian regarding: the historical points, exam findings, and any diagnostic results supporting the discharge/admit diagnosis, radiology results, the need for outpatient follow up, staple removal in 10-14 days, to return to the emergency department if symptoms worsen or persist or if there are any questions or concerns that arise at home. 03 10:00 Order name: CT Head C Spine; Complete Time: 11:27 pm1 03 10:00 Order name: Shoulder Left (2 View) XRAY pm1 Administered Medications: 11:03 Drug: Tetanus-Diphtheria Toxoid Adult 0.5 ml {Collections Attorney: Cards Off. Exp: aj1 04/16/2021. Lot #: [id number]. } Route: IM; Site: right deltoid; Disposition: 18:09 Co-signature as Attending Physician, Manny Royal MD I agree with the assessment and redd plan of care. Disposition: 07/18/19 11:43 Discharged to Home. Impression: Laceration without foreign body of scalp, Fall on same level from slipping, tripping and stumbling, Pain in left shoulder - contusion. - Condition is Stable. - Discharge Instructions: Head Injury, Adult, Shoulder Pain, Stitches, Chuy, or Adhesive Wound Closure. - Prescriptions for Ultracet 37.5- 325 mg Oral Tablet - take 1 tablet by ORAL route every 6 hours - for up to 5 days; do not exceed 8 tablets per day.; 12 tablet. - Medication Reconciliation Form, Thank You Letter, Antibiotic Education, Prescription Opioid Use form. - Follow up: Emergency Department; When: As needed; Reason: Worsening of condition. Follow up: Private Physician; When: 10 - 14 days; Reason: Wound Recheck, Recheck today's complaints, Continuance of care, Staple/Suture removal, Re-evaluation by your physician. - Problem is new. - Symptoms have improved. Signatures: Dispatcher [employer] EDMS Fabi Pereira RN RN aj1 Anderson, Corey, MD MD cha Williams, Irene, RN RN iw Marinas, Patrick, NP TASSEL MAKER pm1 Corrections: (The following items were deleted from the chart) 11:43 11:43 07/18/2019 11:43 Discharged to Home. Impression: Laceration without foreign body pm1 of scalp; Fall on same level from slipping, tripping and stumbling; Pain in left shoulder. Condition is Stable. Forms are Medication Reconciliation Form, Thank You Letter, Antibiotic Education, Prescription Opioid Use. Follow up: Emergency Department; When: As needed; Reason: Worsening of condition. Follow up: Private Physician; When: 10 - 14 days; Reason: Wound Recheck, Recheck today's complaints, Continuance of care, Staple/Suture removal, Re-evaluation by your physician. Problem is new. Symptoms have improved. pm1 11:55 11:43 07/18/2019 11:43 Discharged to Home. Impression: Laceration without foreign body aj1 of scalp; Fall on same level from slipping, tripping and stumbling; Pain in left shoulder - contusion. Condition is Stable. Forms are Medication Reconciliation Form, Thank You Letter, Antibiotic Education, Prescription Opioid Use. Follow up: Emergency Department; When: As needed; Reason: Worsening of condition. Follow up: Private Physician; When: 10 - 14 days; Reason: Wound Recheck, Recheck today's complaints, Continuance of care, Staple/Suture removal, Re-evaluation by your physician. Problem is new. Symptoms have improved. pm1
[2019-07-18 12:03] VITALS: TEMP 98; O2SAT 98
[2019-07-18 12:04] VITALS: BP 132/59
--- NOTE | 2019-07-18 12:19 | RAD REPORT ---
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 Mild subacromial outlet narrowing is seen. No fracture or dislocation seen. IMPRESSION: Mild arthritic changes are present left shoulder. No fracture seen.
== END 2019-07-18 11:55 | disposition home or self-care (01) ==
LOC: ER 08:56
PROC: 0JQ00ZZ Repair Scalp Subcutaneous Tissue and Fascia, Open Approach (ICD-10-PCS; principal; 2019-07-18)
DX: S01.01XA Laceration without foreign body of scalp, initial encounter (principal); S40.012A Contusion of left shoulder, initial encounter; W01.0XXA Fall on same level from slipping, tripping and stumbling without subsequent striking against object, initial encounter; Y93.9 Activity, unspecified; Y92.9 Unspecified place or not applicable; Z23 Encounter for immunization; Z88.0 Allergy status to penicillin
CPT/HCPCS: 70450; 72125; 90471; 90714; 99284

== ENCOUNTER 2022-02-14 17:43 | Emergency (ER) | payer OTHER ==
--- OUTSIDE RECORDS SUMMARY | 2022-02-14 17:45 | XMS REPORT | Continuity of Care Document ---
:1935 Author Organization [facility] t Address [address] [place] [address] Care Team Providers Name Role Phone Morris Serrano Attending Clinician Unavailable Problems This patient has no known problems. Allergies, Adverse Reactions, Alerts Allergy Allergy Status Severity Reaction(s) Onset Inactive Treating Comm ents Source Name Type Date Date Clinician penicill Adverse Active Info Not Commo n in Reaction Available [facility] - [facility] Medications Ordered Filled Start Stop Current Ordering Indication Dosage Frequency Signature Comments Components Source Medication Medication Date Date Medication? Clinician (SIG) Name Name Ciprofloxac Ciprofloxac Yes Murphy TAKE 1 Common in HCl in HCl Valerio TABLET BY Spir it MOUTH - [facility] EVERY [address] [facility] HOURS [facility] Triamcinolo Triamcinolo Yes Murphy APPLY Common ne ne Valerio TWICE A [facility] Acetonide Acetonide DAY - [facility] Sertraline Sertraline Yes Murphy TAKE 1 Common HCl HCl Valerio TABLET BY Spirit MOUTH - [facility] EVERY DAY [facility] Acetaminoph Acetaminoph Yes Murphy (Schedule Common en-Codeine en-Codeine Valerio III Drug) Spirit #3 #3 TAKE 1 - [facility] TABLET St EVERY 8 [facility] Pravastatin Pravastatin Yes Murphy TAKE 1 Common Sodium Sodium Valerio TABLET BY Spir it MOUTH AT - [facility] BEDTIME [facility] Donepezil Donepezil Yes Murphy TAKE 1 C ommon HCl HCl Valerio TABLET BY Spirit MOUTH - [facility] EVERY DAY [facility] Procedures This patient has no known procedures. Encounters Start End Encounter Admission Attending Care Care Encounter Source Date/Time Date/Time Type Type Clinicians Facility Department ID 2021-06-13 Outpatient Robin [facility] [id number] - Common 13:51:22 aMorris [id number] [facility] 2021-06-13 Outpatient [facility] [id number] Common 13:45:17 [id number] [facility] 2021-02-06 2021-02-06 Outpatient [facility] [id number] Common 00:00:00 00:00:00 [facility] 2018-01-16 2018-01-16 [id number] Common 08:00:00 08:00:00 [facility] 2018-01-01 2018-01-01 [facility] [id number] Common 14:30:00 14:30:00 [facility] Results This patient has no known results.
[2022-02-14] MEDS ORDERED: TETANUS & DIPHTHERIA TOX,ADULT 0.5 ML VIAL ONE (18:00)
--- NOTE | 2022-02-14 18:54 | RAD REPORT ---
EXAM DESCRIPTION: RAD - Knee Right 3 View - 02/14/2022 6:40 pm CLINICAL HISTORY: knee pain COMPARISON: Knee Right 3 View dated 12/30/2017 FINDINGS: No fracture, dislocation or periosteal reaction.No joint effusion seen. No joint space anu rowing. The patella fracture from 2018 appears well healed. Soft tissues anterior to the patella and patella tendon appear thickened. No air or foreign body seen . The appearance is not substantially different from 2018. IMPRESSION: Negative right knee for acute bone or joint finding. Clinical concerns for internal derangement or occult bony injury could be further assessed with outpa tient MR imaging.
--- NOTE | 2022-02-14 18:59 | RAD REPORT ---
EXAM DESCRIPTION: RAD - Elbow Left 3 View - 02/14/2022 6:39 pm CLINICAL HISTORY: PAINafter fall COMPARISON: None. FINDINGS: No fractures confirmed and there is no dislocation or periosteal reaction. No elevated pos terior fat pad seen. The subcapital region of the radial head is slightly irregular but not definitiv e for fracture. Mild underlying elbow joint degenerative changes are present. No air or foreign body in the soft tissues. IMPRESSION: No fracture confirmed. No acute bone or joint finding identifiable. Repeat imaging in 7 days would be recommended if the patient remains symptomatic for fracture.
--- NOTE | 2022-02-14 19:07 | RAD REPORT ---
EXAM DESCRIPTION: CT - [id number] - 02/14/2022 6:57 pm CLINICAL HISTORY: fall, head injury, trip and fall COMPARISON: <Comparisons>CT head and cervical July 2019 TECHNIQUE: Axial 5 mm thick images of the head were obtained. Axial 2 mm thick images of the cervic al spine were obtained with sagittal and coronal reconstruction images generated and reviewed. All CT scans are performed using dose optimization technique as appropriate and may include automated exposure control or mA/KV adjustment according to patient size. FINDINGS: No intracranial hemorrhage, mass, edema or acute intracranial finding. No cortical edema o r sulcal effacement. Acute infarction is a triggering event is not suspected. Moderate severity atrop hy and chronic ischemic changes are present. Ventricles are in proportion to volume loss. Arterial an d physiologic calcifications are present. Intracranial findings are similar to the comparison. No ext ra-axial fluid collections. Mastoid air cells are clear. Orbits, facial bones and sinuses are separat fabrizio detailed. Cervical bodies are normal in height. No fracture or acute cervical bony finding identified. Very sli ght anterior subluxation of C3 on C4 matches comparison. Advanced degenerative disc disease C4-T1 mat ches the prior study. Large anterior spurs are present C5-C7. Prominent facet joint degenerative cruz ges are present. Bony foraminal stenosis seen at C4-5, mildly at C5-6, moderately at C6-7 and C7-T1. Facet joints align normally. Central canal detail is inherently limited. No paraspinal mass or hematoma. IMPRESSION: Atrophy and chronic ischemic changes match prior imaging. No acute intracranial finding. Facial bones, orbits and sinuses are separately detailed. Cervical spine degenerative change matching comparison. No acute finding.
--- NOTE | 2022-02-14 19:09 | RAD REPORT ---
EXAM DESCRIPTION: CT - Facial Bones W/ Mpr - 02/14/2022 6:57 pm CLINICAL HISTORY: Fall, blunt force trauma to the face COMPARISON: None. TECHNIQUE: Axial 2 millimeter thick images of the facial bones were obtained with sagittal and coron al reconstruction imaging. All CT scans are performed using dose optimization technique as appropriate and may include automated exposure control or mA/KV adjustment according to patient size. FINDINGS: Exam is degraded by motion. Condyles of the mandible are normally positioned. No fracture of the mandible suspected. Nondisplaced fractures are present at the tip of the nasal bone. Anterior- most nasal septum is fractured at the junction with the nasal bone. There is very slight right deviat ion. No other facial bone fracture seen. There is soft tissue swelling over the nose and forehead. Fr ontal bone is intact. No acute paranasal sinus finding. No globe or orbital content abnormality. IMPRESSION: Nondisplaced fractures of the nasal bone at the anterior tip and of the nasal septum at the anterior junction with the nasal bone.
[2022-02-14] MEDS ORDERED: LIDOCAINE 1% MPF 30 ML VIAL ONE (20:01)
--- NOTE | 2022-02-14 20:36 | EDPHYS ---
Physician Documentation [facility] Name: Liss Cordon Age: 86 yrs Sex: Male : 1935 Arrival Date: 02/14/2022 Time: 17:49 Bed 19 Private MD: ED Physician Carlos Lemos HPI: 02/14 19:49 This 86 yrs old Male presents to ER via EMS with complaints of Fall, nasal injury. jmm 19:49 Details of fall: The patient fell from an upright position, while walking. Onset: The jmm symptoms/episode began/occurred acutely, just prior to arrival. Associated injuries: The patient sustained injury to the head. This is an 86 year old male with a history of alzheimers, hlp that presents to the ED with complaints of left elbow and right knee pain after tripping on a cement block after performing yard work. Denies LOC, neck pain, chest pain, sob. . Historical: - Allergies: 17:51 PENICILLINS; mb8 - Home Meds: 20:58 Centrum Silver Oral daily [Active]; sertraline 25 mg Oral tab 1 tab once daily kd3 [Active]; memantine 5 mg Oral tab [Active]; donepezil 10 mg Oral tab 1 tab once daily [Active]; Vitamin B-12 Oral daily [Active]; - PMHx: 17:51 Alzheimers; Hyperlipidemia; mb8 - Immunization history:: Vaccine Information Sheet provided. - Social history:: Smoking status: Patient denies any tobacco usage or history of. ROS: 19:49 Constitutional: Negative for fever, chills, and weight loss, Cardiovascular: Negative jmm for chest pain, palpitations, and edema, Respiratory: Negative for shortness of breath, cough, wheezing, and pleuritic chest pain. 19:49 MS/extremity: Positive for pain. 19:49 All other systems are negative. Exam: 19:49 Constitutional: This is a well developed, well nourished patient who is awake, alert, jmm and in no acute distress. Eyes: EOMI, no conjunctival erythema appreciated ENT: Moist Mucus Membranes Neck: Trachea midline, Supple Chest/axilla: Normal chest wall appearance and motion. Cardiovascular: Regular rate and rhythm. No edema appreciated Respiratory: Normal respirations, no respiratory distress appreciated Abdomen/GI: Non distended 19:49 Head/face: laceration noted to the forehead above the left eyebrow, nose. 19:49 Musculoskeletal/extremity: left elbow ttp, no deformity, compartments are soft, full radial pulse, nvi. Right anterior knee pain on palpation, compartments are soft, NVI, full dorsalis pulse. 19:49 Skin: Appearance: Color: normal in color. 19:49 Neuro: Motor: is normal. 19:49 Psych: Behavior/mood is pleasant, cooperative. Vital Signs: 17:49 BP 166 / 92; Pulse 63; Resp 16; Temp 98; Pulse Ox 99% ; Pain 4/10; mb8 18:28 BP 148 / 75; Pulse 60; Resp 18; Pulse Ox 100% ; Pain 4/10; mb8 20:59 Pulse 66; Pulse Ox 99% on R/A; kd3 Laceration: 20:30 Wound Repair of 3cm ( 1.2in ) subcutaneous laceration to forehead. Distal [facility] neuro/vascular/tendon intact. Anesthesia: Local anesthetic administered with 2 mls of 1% lidocaine. Wound prep: Simple cleansing with betadine by me. Skin closed with 6 5-0 Prolene using simple sutures and sterile technique. Patient tolerated well. 20:30 Wound Repair of 1cm ( 0.4in ) subcutaneous laceration to nose. Distal [facility] neuro/vascular/tendon intact. Anesthesia: Local anesthetic administered with 1 mls of 1% lidocaine. Wound prep: Simple cleansing with betadine by me. Skin closed with 3 5-0 Prolene using simple sutures and sterile technique. Patient tolerated well. MDM: 17:50 Patient medically screened. [facility] 20:33 Data reviewed: vital signs, nurses notes. Counseling: I had a detailed discussion with jayshree the patient and/or guardian regarding: the historical points, exam findings, and any diagnostic results supporting the discharge/admit diagnosis, radiology results, the need for outpatient follow up, to return to the emergency department if symptoms worsen or persist or if there are any questions or concerns that arise at home. 02/14 17:51 Order name: CT Head C Spine; Complete Time: 19:[address] [facility] 02/14 17:51 Order name: CT Facial Bones W/O Con; Complete Time: 19:[address] [facility] 02/14 17:51 Order name: Elbow Left 3 View XRAY; Complete Time: 19:[address] [facility] 02/14 17:51 Order name: Knee Right 3 View XRAY; Complete Time: 19:[address] [facility] 02/14 17:55 Order name: Wound Care; Complete Time: 17:55 [facility] 02/14 20:33 Order name: Ector wrap-joint: right knee; Complete Time: 20:[address] [facility] Administered Medications: 18:07 Drug: Tetanus-Diphtheria Toxoid Adult 0.5 ml {Stripping Machine Operator: Evestra. Exp: mb8 09/22/2023. Lot #: [id number]. } Route: IM; Site: right deltoid; 18:27 Follow up: Response: No adverse reaction [facility] 20:34 Drug: Lidocaine (1 %) 20 ml Volume: 20 ml; Route: Infiltration; kd3 Disposition Summary: 02/14/22 20:35 Discharge Ordered Location: Home [facility] Condition: Stable [facility] Diagnosis - Fracture of nasal bones jmm - Other internal derangements of right knee jmm - Contusion of elbow [facility] Followup: [facility] - With: Kusum Gallardo MD - When: 2 - 3 days - Reason: Recheck today's complaints, Continuance of care, Re-evaluation by your physician Discharge Instructions: - Discharge Summary Sheet [facility] - Facial Laceration [facility] - Nasal Fracture [facility] - Acute Knee Pain, Adult [facility] Forms: - Medication Reconciliation Form [facility] - Thank You Letter [facility] - Antibiotic Education [facility] - Prescription Opioid Use [facility] Prescriptions: - Clindamycin HCl 300 mg Oral Capsule - take 1 capsule by ORAL route every 6 hours for 10 days; 40 capsule; Refills: 0, [facility] Product Selection Permitted Addendum: 02/18/2022 08:17 PA/SCRUBBER MACHINE TENDER's history reviewed, patient interviewed, and examined. I agree with assessment j r11 and care plan and confirm the diagnosis (es) above. Attestation: The patient's history, exam findings, diagnostics, and a summary of any interventions or procedures was reviewed in detail with Yeyo PELLETIER. Signatures: Dispatcher [employer] EDYeyo Templeton PA PA jmm Doucette, Kyli, RN RN kd3 Carlos Lemos MD MD [id number] Ricci Barney RN RN mb8
--- NOTE | 2022-02-14 20:36 | ER ---
Nurse's Notes [facility] Name: Liss Cordon Age: 86 yrs Sex: Male : 1935 Arrival Date: 02/14/2022 Time: 17:49 Bed 19 Private MD: Diagnosis: Fracture of nasal bones;Other internal derangements of right knee;Contusion of elbow Presentation: 02/14 17:49 Chief complaint: Patient states: he tripped over a concrete block in the back yard 8 after mowing. Laceration to bridge of nose, hematoma above left brow line, abrasion to right knee. Coronavirus screen: Vaccine status: Patient reports receiving the 2nd dose of the covid vaccine. Ebola Screen: Patient negative for fever greater than or equal to 101.5 degrees Fahrenheit, and additional compatible Ebola Virus Disease symptoms Patient denies exposure to infectious person. Patient denies travel to an Ebola-affected area in the 21 days before illness onset. Initial Sepsis Screen: Does the patient meet any 2 criteria? No. Patient's initial sepsis screen is negative. Does the patient have a suspected source of infection? Yes: Skin breakdown/wound. Risk Assessment: Do you want to hurt yourself or someone else? Patient reports no desire to harm self or others. Onset of symptoms was February 14, 2022. 17:49 Method Of Arrival: EMS mb8 17:49 Acuity: HARDY 3 mb8 Triage Assessment: 17:51 General: Appears uncomfortable, Behavior is calm, cooperative, appropriate for age. mb8 Pain: Complains of pain in right knee Pain does not radiate. Pain currently is 4 out of 10 on a pain scale. Quality of pain is described as aching, Pain began suddenly. Historical: - Allergies: 17:51 PENICILLINS; mb8 - Home Meds: 20:58 Centrum Silver Oral daily [Active]; sertraline 25 mg Oral tab 1 tab once daily kd3 [Active]; memantine 5 mg Oral tab [Active]; donepezil 10 mg Oral tab 1 tab once daily [Active]; Vitamin B-12 Oral daily [Active]; - PMHx: 17:51 Alzheimers; Hyperlipidemia; mb8 - Immunization history:: Vaccine Information Sheet provided. - Social history:: Smoking status: Patient denies any tobacco usage or history of. Screenin:54 Abuse screen: Denies threats or abuse. Denies injuries from another. Nutritional mb8 screening: No deficits noted. Tuberculosis screening: No symptoms or risk factors identified. Fall Risk Fall in past 12 months (25 points). Secondary diagnosis (15 points) No IV (0 pts). Ambulatory Aid- None/Bed Rest/Nurse Assist (0 pts). Gait- Weak (10 pts.). Mental Status- Oriented to own ability (0 pts). Total Rubio Fall Scale indicates Low Risk Score (25-44 pts). Fall prevention measures have been instituted. Side Rails Up X 2 As available Patient and Family Educated on Fall Prevention Program and strategies. Assessment: 17:52 Derm: Wound noted bridge of nose Wound is bleeding laceration, controlled with direct mb8 pressure. Musculoskeletal: Circulation, motion, and sensation intact. Capillary refill < 3 seconds, Range of motion: intact in all extremities, Reports pain in right knee. 17:53 Derm: abrasion to right knee, hematoma above left brow line. mb8 20:55 General: Appears in no apparent distress. Behavior is calm, cooperative. Neuro: Level kd3 of Consciousness is awake, alert, obeys commands, Oriented to person, place, time, situation. Respiratory: Airway is patent Trachea midline Respiratory effort is even, unlabored, Respiratory pattern is regular, symmetrical. Vital Signs: 17:49 BP 166 / 92; Pulse 63; Resp 16; Temp 98; Pulse Ox 99% ; Pain 4/10; mb8 18:28 BP 148 / 75; Pulse 60; Resp 18; Pulse Ox 100% ; Pain 4/10; mb8 20:59 Pulse 66; Pulse Ox 99% on R/A; kd3 ED Course: 17:49 Patient arrived in ED. em1 17:49 Ricci Barney RN is Primary Nurse. mb8 17:50 Yeyo Mckee PA is PHCP. jmm 17:50 Carlos Lemos MD is Attending Physician. jmm 17:51 Triage completed. mb8 17:52 Arm band placed on. mb8 17:54 Patient has correct armband on for positive identification. Fall risk band placed. mb8 Placed in gown. Bed in low position. Call light in reach. Side rails up X2. Client placed on continuous cardiac and pulse oximetry monitoring. NIBP monitoring applied. 17:55 Wound care: to laceration located on bridge of nose was cleaned with Hibicletiti, mb8 irrigated with normal saline, dressed with 4X4s, Patient tolerated well. 18:41 Elbow Left 3 View XRAY In Process Unspecified. EDMS 18:41 Knee Right 3 View XRAY In Process Unspecified. EDMS 18:59 CT Head C Spine In Process Unspecified. EDMS 18:59 CT Facial Bones W/O Con In Process Unspecified. EDMS 19:12 Primary Nurse role handed off by Ricci Barney RN mw2 20:16 Kristen Cisneros, RN is Primary Nurse. kd3 20:35 Kusum Gallardo MD is Referral Physician. [facility] 20:55 Assist provider with laceration repair on bridge of nose. Patient did not have IV kd3 access during this emergency room visit. Administered Medications: 18:07 Drug: Tetanus-Diphtheria Toxoid Adult 0.5 ml {Power Transformer Repairer: L3. Exp: mb8 09/22/2023. Lot #: [id number]. } Route: IM; Site: right deltoid; 18:27 Follow up: Response: No adverse reaction mb8 20:34 Drug: Lidocaine (1 %) 20 ml Volume: 20 ml; Route: Infiltration; kd3 Medication: 20:58 VIS not applicable for this client. kd3 20:58 Vaccine Information Statement (VIS) provided today. Questions and/or concerns kd3 addressed. VIS edition date: December 22, 2020. Outcome: 20:35 Discharge ordered by . [facility] 20:57 Discharged to home with friend. kd3 20:57 Condition: stable 20:57 Discharge instructions given to patient, family, Instructed on discharge instructions, follow up and referral plans. Demonstrated understanding of instructions, follow-up care. 21:01 Patient left the ED. kd3 Signatures: Dispatcher [employer] EDMS Yeyo Mckee PA PA jmm Martinez, Eric em1 [place] mw2 Kristen Cisneros RN RN kd3 Ricci Barney RN RN mb8 Corrections: (The following items were deleted from the chart) 17:52 17:49 Chief complaint: Patient states: he tripped over a concrete block in the back mb8 yard after mowing. Laceration to bridge of nose, hematoma above left brow line, abrasion to left knee. mb8
[2022-02-15 21:23] VITALS: TEMP 98
[2022-02-15 21:25] VITALS: BP 148/75
[2022-02-15 21:26] VITALS: O2SAT 99
== END 2022-02-14 21:01 | disposition home or self-care (01) ==
LOC: ER 17:43
PROC: 0JQ10ZZ Repair Face Subcutaneous Tissue and Fascia, Open Approach (ICD-10-PCS; principal; 2022-02-14)
DX: S02.2XXA Fracture of nasal bones, initial encounter for closed fracture (principal); M23.8X1 Other internal derangements of right knee; S50.01XA Contusion of right elbow, initial encounter; S01.81XA Laceration without foreign body of other part of head, initial encounter; Z23 Encounter for immunization; G30.9 Alzheimer's disease, unspecified; F02.80 Dementia in other diseases classified elsewhere, unspecified severity, without behavioral disturbance, psychotic disturbance, mood disturbance, and anxiety; Z88.0 Allergy status to penicillin
CPT/HCPCS: 70450; 70486; 72125; 76377; 90471; 90714; 99284